=== PATIENT | male | born 1990 | race African-American/Black ===

== ENCOUNTER 2016-11-12 12:16 | Emergency (ER) | payer OTHER ==
[~2016-11-12] VITALS: Ht 177.8 cm; Wt 61.2 kg
[2016-11-12 12:46] VITALS: BP 118/74
--- NOTE | 2016-11-12 12:46 | NUR ---
Pt dc;ed home w/ aci.
== END 2016-11-12 12:48 | disposition home or self-care (01) ==
LOC: ER 12:16
DX: Z00.8 Encounter for other general examination (principal)
CPT/HCPCS: 99281; A4663

== ENCOUNTER 2017-03-29 16:49 | Emergency (ER) | payer OTHER ==
[~2017-03-29] VITALS: Ht 177.8 cm; Wt 62.1 kg
--- NOTE | 2017-03-29 17:13 | NUR ---
Patient discharged to home in stable conditon. Written and verbal after care instructions given. Patient verbalizes understanding of instructions.
== END 2017-03-29 17:13 | disposition home or self-care (01) ==
LOC: ER 16:50
DX: J02.9 Acute pharyngitis, unspecified (principal)
CPT/HCPCS: A4663